=== PATIENT | female | born 1950 | race Caucasian/White ===

== ENCOUNTER 2016-03-18 15:24 | Emergency (ER) | payer OTHER ==
[~2016-03-18] VITALS: Ht 172.7 cm; Wt 76.7 kg
[2016-03-18] MEDS ORDERED: TRICOR145 MG PO (16:18)
[2016-03-18] MEDS ORDERED: METOPROLOL TART50 MG PO (16:18)
[2016-03-18] MEDS ORDERED: ATORVASTATIN CA10 MG PO (16:18)
[2016-03-18] MEDS ORDERED: CLONAZEPAM0.5 MG PO (16:19)
[2016-03-18] MEDS ORDERED: PROTONIX40 MG PO (16:19)
[2016-03-18] MEDS ORDERED: NORTRIPTYLINE H50 MG PO (16:19)
[2016-03-18] MEDS ORDERED: PREMARIN VAGI42.5 GM VG (16:20)
[2016-03-18] MEDS ORDERED: ASPIRIN81 M2 PO (16:20)
[2016-03-18] MEDS ORDERED: MAGNESIUM400 M1 PO (16:20)
[2016-03-18 17:35] LABS: HEMATOCRIT 42.3 % (36.0-46.0); MCH 29.6 PG (29.0-34.0); MCHC 33.6 G/DL (30.0-36.0); MCV 88.3 FL (83-99); MEAN PLAT.VOLUME 10.1 uM^3 (9.5-12.4); PLATELET COUNT 244 K/uL (156-360); RBC DIS.WIDTH-CV 11.8 % (11.8-14.6); RBC DIS.WIDTH-SD 37.5 % (39-53); RED BLOOD COUNT 4.79 M/uL (3.80-5.20); WHITE BLOOD COUNT 6.6 K/uL (4.1-10.2)
[2016-03-18] MEDS ORDERED: SLOW-MAG,MAG DE64 MG PO (17:45)
[2016-03-18] MEDS ORDERED: PREMARIN VAGI42.5 GM TP (17:53)
[2016-03-18 17:54] LABS: ANION GAP 7 MEQ/L (2-14); CHLORIDE 105 MEQ/L (99-109); POTASSIUM 3.7 MEQ/L (3.7-5.4); SAMPLE HEMOLYSIS CHECK 0; SAMPLE ICTERIC CHECK 0; SAMPLE LIPEMIA CHECK 0; SODIUM 140 MEQ/L (136-147)
[2016-03-18] MEDS ORDERED: VALSARTAN40 MG PO (17:54)
[2016-03-18 17:59] LABS: GFR ESTIMATE (CALCULATED) > 59 mL/min/; GLUCOSE 137 mg/dL (70-99); UREA NITROGEN (BUN) 12 mg/dL (9-23)
[2016-03-18] MEDS ORDERED: MOTRIN600 MG PO (18:36)
[2016-03-18] MEDS ORDERED: PERCOCET 5/31 TABLET PO (18:36)
[2016-03-18 19:00] VITALS: BP 128/68
== END 2016-03-18 19:01 | disposition home or self-care (01) ==
LOC: EME 15:24
PROVIDERS: Nurse Practitioner Family
PROC: 0PSJXZZ Reposition Left Radius, External Approach (ICD-10-PCS; principal; 2016-03-18)
DX: S52.572A Other intraarticular fracture of lower end of left radius, initial encounter for closed fracture (principal); I10 Essential (primary) hypertension; I25.10 Atherosclerotic heart disease of native coronary artery without angina pectoris; W18.30XA Fall on same level, unspecified, initial encounter; Y93.51 Activity, roller skating (inline) and skateboarding
CPT/HCPCS: 71010; 73100; 73110; 80048; 85027; 93005; 99281; 99284